=== PATIENT | female | born 1995 | race Caucasian/White ===

== ENCOUNTER 2021-10-09 10:04 | Emergency (ER) | payer SELFPAY ==
[~2021-10-09] VITALS: Wt 54.4 kg
[2021-10-09] MEDS ORDERED: AMOXICILLIN500 M3 PO (10:58)
[2021-10-09] MEDS ORDERED: HYDROCODONE-AC1 EAC1 PO (10:58)
== END 2021-10-09 11:15 | disposition home or self-care (01) ==
LOC: ED 10:04
DX: K04.7 Periapical abscess without sinus (principal)

== ENCOUNTER 2021-11-20 07:18 | Emergency (ER) | payer SELFPAY ==
[~2021-11-20] VITALS: Wt 54.4 kg
[~2021-11-20 07:18] MED LIST: AMOXICILLIN500 M3 PO; HYDROCODONE-AC1 EAC1 PO
[2021-11-20 09:39] LABS: BASO % 0.4 % (0.0-1.0); EOS % 0.4 % (1.0-4.0); HEMATOCRIT 33.1 % (37.0-47.0); LYMPH # 0.3 10*3/uL (1.3-4.4); LYMPH % 12.4 % (27.0-41.0); MEAN CORPUSCULAR HGB CONC 32.6 g/dl (33.0-37.0); MEAN PLATELET VOLUME 10.3 fl (9.6-12.3); MONO # 0.3 10*3/uL (0.1-1.0); MONO % 11.6 % (3.0-9.0); NEUT # 1.8 10*3/uL (2.3-7.9); NEUT % 74.8 % (47.0-73.0); PLATELET COUNT AUTOMATED 144 10*3/uL (130-400); RED BLOOD COUNT 3.72 10*6/uL (4.10-5.10); RED CELL DISTRI WIDTH 13.1 % (0-14.5); WHITE BLOOD COUNT 2.4 10*3/uL (4.8-10.8)
[2021-11-20 09:40] LABS: BILIRUBIN Negative (Negative); BLOOD Negative (Negative); CLARITY Clear (Clear); COLOR Yellow (Yellow); GLUCOSE Negative (Negative); KETONE Negative (Negative); LEUKO ESTERASE Negative (Negative); NITRITE Negative (Negative); PH 5.5 (4.5-8.0); SPECIFIC GRAVITY <= 1.005 (1.001-1.030); UROBILINOGEN 0.2 E.U./dl (0.0-1.0)
[2021-11-20 09:55] LABS: BACTERIA 1+; MUCOUS 1+
[2021-11-20 09:56] LABS: ALBUMIN 4.4 gm/dl (3.1-4.5); ALKALINE PHOSPHATASE 48 U/L (45-117); BUN 7 mg/dl (7-24); CHLORIDE 108 mmol/L (98-107); CREATININE 0.81 mg/dL (0.55-1.02); POTASSIUM 3.5 mmol/L (3.5-5.1); SGOT/AST 10 IU/L (3-35); SGPT/ALT 14 U/L (12-78); SODIUM 142 mmol/L (136-145); TOTAL PROTEIN 7.7 gm/dL (6.4-8.2)
[2021-11-20 09:59] LABS: B-hCG (QUALITATIVE) NEGATIVE (NEGATIVE)
== END 2021-11-20 11:02 | disposition home or self-care (01) ==
LOC: ED 07:18
PROVIDERS: Internal Medicine
DX: M54.9 Dorsalgia, unspecified (principal); D64.9 Anemia, unspecified; D72.829 Elevated white blood cell count, unspecified; F17.200 Nicotine dependence, unspecified, uncomplicated

== ENCOUNTER 2022-04-01 09:48 | Emergency (ER) | payer SELFPAY ==
[~2022-04-01] VITALS: Wt 54.4 kg
[2022-04-01 10:26] LABS: BASO % 0.4 % (0.0-1.0); EOS # 0.1 10*3/uL (0.0-0.4); EOS % 1.1 % (1.0-4.0); HEMATOCRIT 35.3 % (37.0-47.0); LYMPH # 1.5 10*3/uL (1.3-4.4); LYMPH % 16.5 % (27.0-41.0); MEAN CELL VOLUME 86.5 fl (81.0-99.0); MEAN CORPUSCULAR HGB 29.2 pg (27.0-31.0); MEAN CORPUSCULAR HGB CONC 33.7 g/dl (33.0-37.0); MEAN PLATELET VOLUME 10.1 fl (9.6-12.3); MONO # 0.8 10*3/uL (0.1-1.0); MONO % 8.6 % (3.0-9.0); NEUT # 6.6 10*3/uL (2.3-7.9); NEUT % 73.1 % (47.0-73.0); PLATELET COUNT AUTOMATED 233 10*3/uL (130-400); RED BLOOD COUNT 4.08 10*6/uL (4.10-5.10); RED CELL DISTRI WIDTH 12.8 % (0-14.5); WHITE BLOOD COUNT 9.1 10*3/uL (4.8-10.8)
[2022-04-01 10:40] LABS: ALKALINE PHOSPHATASE 51 U/L (45-117); BUN 8 mg/dl (7-24); CHLORIDE 106 mmol/L (98-107); CREATININE 0.75 mg/dL (0.55-1.02); LIPASE 62 U/L (73-393); POTASSIUM 3.9 mmol/L (3.5-5.1); SGOT/AST 8 IU/L (3-35); SGPT/ALT 12 U/L (12-78); SODIUM 139 mmol/L (136-145); TOTAL PROTEIN 7.7 gm/dL (6.4-8.2)
[2022-04-01] MEDS ORDERED: PROTONIX40 MG PO (11:22)
== END 2022-04-01 11:40 | disposition home or self-care (01) ==
LOC: ED 09:48
PROVIDERS: Family Medicine
DX: R05.9 Cough, unspecified (principal); K21.9 Gastro-esophageal reflux disease without esophagitis

== ENCOUNTER 2023-12-01 10:12 | Emergency (ER) | payer SELFPAY ==
[~2023-12-01] VITALS: Ht 172.7 cm; Wt 56.7 kg
[~2023-12-01 10:12] MED LIST changes: +PROTONIX40 MG PO
[2023-12-01] MEDS ORDERED: Motrin,Rufen800 MG PO (10:53)
[2023-12-01] MEDS ORDERED: CLEOCIN HCL150 MG PO (10:53)
== END 2023-12-01 11:08 | disposition home or self-care (01) ==
LOC: ED 10:12
DX: K08.89 Other specified disorders of teeth and supporting structures (principal)

== ENCOUNTER 2025-03-18 10:16 | Emergency (ER) | payer SELFPAY ==
[~2025-03-18] VITALS: Ht 177.8 cm; Wt 49.9 kg
[~2025-03-18 10:16] MED LIST changes: +CLEOCIN HCL150 MG PO; +Motrin,Rufen800 MG PO
[2025-03-18] MEDS ORDERED: Dexamethasone Sodium Phospha 10 MG/1 ML VIAL PO ONE (11:45)
[2025-03-18] MEDS ORDERED: IBUPROFEN 600 MG TAB PO ONE (11:50)
[2025-03-18] MEDS ORDERED: CEFDINIR 300 MG CAP PO ONE (11:50)
[2025-03-18] MEDS ORDERED: OMNICEF300 MG PO (11:59)
== END 2025-03-18 12:56 | disposition home or self-care (01) ==
LOC: ED 10:16
DX: J02.0 Streptococcal pharyngitis (principal); F17.290 Nicotine dependence, other tobacco product, uncomplicated; Z20.822 Contact with and (suspected) exposure to COVID-19